=== PATIENT | male | born 1950 | race Caucasian/White ===

== ENCOUNTER → 2016-06-19 | Day surgery (SDC) | payer BC ==
[~2016-06-19] MED LIST: ACYCLOVIR400 MG PO; AMBIEN10 MG PO; AZOR; AZOR 10/40 MG T1 TAB PO; AZOR 5/20 MG TA1 TAB PO; GABAPENTIN300 MG PO; GABAPENTIN400 M2 PO; OXYCODONE HCL15 MG PO; PERCOCET 10/31 UDTA1 PO; PERCOCET 5-3251 TAB PO; PERCOCET 5/321 UDTAB PO; VOLTAREN75 MG PO; ZANAFLEX4 M1 PO; ZETIA PO; ZOCOR PO
--- NOTE | ~2016-06-19 | OR ---
Unit #: [id number] #: [id number] Patient: JULIO CESAR OROZCO "LONG" [id number] [address] [place], [place] [address] [id number] O MR#: [id number] NAME: JULIO CESAR OROZCO 'LONG' ROOM: Date of Procedure: 06/19/2016 Admission Date: 06/19/2016 Surgeon: Javy Keller M.D. : 1950 Attending Physician: Javy Keller M.D. Referring Physician: Javy Keller M.D. Primary Care Physician: Praveen Castro M.D. OPERATIVE REPORT PREOPERATIVE DIAGNOSES Degenerative disk disease, lumbar spinal stenosis, low back pain, radiculopathy. POSTOPERATIVE DIAGNOSES Degenerative disk disease, lumbar spinal stenosis, low back pain, radiculopathy. PROCEDURES PERFORMED Lumbar epidural steroid injection with intravenous sedation and fluoroscopic guidance for needle localization. HISTORY OF PRESENT ILLNESS The patient is a 66-year-old male with return of back and bilateral lower extremity pain, much more significant on the left than the right. He is treated medically with p.r.n. epidural steroid injections. If the pain does flare, epidurals have been the only modality to help settle it. Last injections were completed about 6 months ago. Based on patient's prior response, pathology, and symptomatology, we are going to proceed with a repeat epidural steroid injection today. DESCRIPTION OF PROCEDURE The patient was placed in a seated position. Standard monitors were applied. 4 mg of Versed were given for sedation and anxiolysis, which were adequate. Vital signs remained stable. Sterile prep and drape then of the lumbar area was performed. The skin then at the L4-5 level was localized with 1% lidocaine. An 18-gauge [employer] needle was then advanced via loss of resistance technique and fluoroscopic guidance in toward the epidural space. The patient did not complain of pain or paresthesia during needle advancement. After confirming proper positioning with fluoroscopy and radiographic contrast, 80 mg of Depo-Medrol and 4 mL of 0.125% bupivacaine were deposited. The patient tolerated the procedure otherwise well and was discharged to recovery room in stable condition. Dictated by... Javy Keller M.D. LHP/modl Unit #: [id number] #: [id number] Patient: JULIO CESAR OROZCO "LONG" TD: 06/20/2016 05:21 JOB #: [id number] OPERATIVE REPORT X Javy Keller MD X PROCEDURE OPERATIVE NOTE
== END | disposition home or self-care (01) ==
LOC: CCSC 09:49
DX: M51.16 Intervertebral disc disorders with radiculopathy, lumbar region (principal); M48.06 Spinal stenosis, lumbar region; M54.5 Low back pain
CPT/HCPCS: J1040; J2250

== ENCOUNTER → 2016-07-17 | Day surgery (SDC) | payer BC ==
--- NOTE | ~2016-07-17 | OR ---
Unit #: [id number] #: [id number] Patient: JULIO CESAR OROZCO "LONG" [id number] [address] [place], [place] [address] [id number] O MR#: [id number] NAME: JULIO CESAR OROZCO 'LONG' ROOM: Date of Procedure: 07/17/2016 Admission Date: 07/17/2016 Surgeon: Javy Keller M.D. : 1950 Attending Physician: Javy Keller M.D. Primary Care Physician: Praveen Castro M.D. OPERATIVE REPORT PREOPERATIVE DIAGNOSES 1. Back pain. 2. Radiculopathy. 3. Spinal stenosis. 4. Degenerative lumbar disk disease. POSTOPERATIVE DIAGNOSES 1. Back pain. 2. Radiculopathy. 3. Spinal stenosis. 4. Degenerative lumbar disk disease. PROCEDURE PERFORMED Lumbar epidural steroid injection with intravenous sedation and fluoroscopic guidance for needle localization. INDICATIONS FOR PROCEDURE The patient is a 66-year-old male, who had return of back and right much greater than left lower extremity pain due to known significant degenerative disk disease; facet disease; and spinal stenosis, most severe at the L4-L5 level. He has done well with medical management and p.r.n. epidural steroid injections. At times, single injections also required; other times, he required second or third. The patient had injection done just about 4 weeks ago, did not result in the usual good improvement he gets. We are going to proceed with a second injection based on history, pathology, symptomatology, and expected response. DESCRIPTION OF PROCEDURE The patient was placed in the seated position. Standard monitors were applied. 3 mg of Versed were given for sedation and anxiolysis, which were adequate. Vital signs remained stable. Sterile prep and drape then of the lumbar area was performed. The skin then at the L4 level was localized with 1% lidocaine. An 18-gauge [employer]ad needle was then advanced via loss of resistance technique and fluoroscopic guidance in toward the epidural space. The patient did not complain of pain or paresthesia during needle advancement. After confirming proper positioning with fluoroscopy and radiographic contrast, 80 mg of Depo-Medrol and 4 mL of 0.125% bupivacaine were deposited. The patient tolerated the procedure otherwise well and was discharged to the recovery room in stable condition. Dictated by... Unit #: [id number] #: [id number] Patient: JULIO CESAR OROZCO "LONG" Analisa Hernandez/valery TD: 07/17/2016 22:34 JOB #: [id number] OPERATIVE REPORT Page 1 of 1 X Javy Keller MD X PROCEDURE OPERATIVE NOTE
== END | disposition home or self-care (01) ==
LOC: CCSC 07:48
DX: M51.16 Intervertebral disc disorders with radiculopathy, lumbar region (principal); M48.06 Spinal stenosis, lumbar region
CPT/HCPCS: J1040; J2250

== ENCOUNTER → 2016-10-23 | Day surgery (SDC) | payer BC ==
--- NOTE | ~2016-10-23 | OR ---
Unit #: [id number] #: [id number] Patient: JULIO CESAR OROZCO [id number] [address] [place], [place] [address] [id number] O MR#: [id number] NAME: JULIO CESAR OROZCO ROOM: Date of Procedure: 10/23/2016 Admission Date: 10/23/2016 Surgeon: Javy Keller M.D. : 1950 Attending Physician: Javy Keller M.D. Primary Care Physician: Praveen Jernigan M.D. OPERATIVE REPORT JOB NOTE: CC: [facility] AND DR. PRAVEEN JERNIGAN PREOPERATIVE DIAGNOSES Back pain, radiculopathy, degenerative disk disease, lumbar spinal stenosis. POSTOPERATIVE DIAGNOSES Back pain, radiculopathy, degenerative disk disease, lumbar spinal stenosis. PROCEDURE PERFORMED Lumbar epidural steroid injection with intravenous sedation and fluoroscopic guidance for needle localization. INDICATIONS FOR PROCEDURE The patient is a 66-year-old male with return of back and right much greater than left lower extremity pain due to known severe spinal stenosis, degenerative disk and facet disease, most severe at the L4-L5 level. He is a poor surgical candidate. He is treated medically with p.r.n. epidural steroid injections. Last injection was completed little over 3 months ago. The patient had about a 60% to 75% reduction in his symptom complex. Pain now returns in typical distribution. In the past, he always done well with a single injection. Last time, he required 2 injections a month apart. We will repeat injection today and then see his response that determine whether or not he needs the second injection. Plan is to do few injections as required. DESCRIPTION OF PROCEDURE The patient was placed in a seated position. Standard monitors were applied. 4 mg of Versed were given for sedation and anxiolysis, which were adequate. Vital signs remained stable. Sterile prep and drape then of the lumbar area was performed. The skin then at the L4 level was localized with 1% lidocaine. An 18-gauge Ne[employer] needle was then advanced via loss of resistance technique and fluoroscopic guidance in toward the epidural space. After confirming proper positioning with fluoroscopy and radiographic contrast, 80 mg of Depo-Medrol and 4 mL of 0.125% bupivacaine were deposited. The patient tolerated the procedure otherwise well and was discharged to the recovery room in stable condition. Dictated by... Javy Keller M.D. Unit #: [id number] #: [id number] Patient: JULIO CESAR OROZCO LHP/valery TD: 10/23/2016 11:49 JOB #: [id number] OPERATIVE REPORT Page 1 of 1 X Javy Keller MD X PROCEDURE OPERATIVE NOTE
== END | disposition home or self-care (01) ==
LOC: CCSC 07:02
DX: M51.16 Intervertebral disc disorders with radiculopathy, lumbar region (principal); M48.06 Spinal stenosis, lumbar region
CPT/HCPCS: J1040; J2250

== ENCOUNTER → 2016-11-06 | Day surgery (SDC) | payer BC ==
--- NOTE | ~2016-11-06 | OR ---
Unit #: [id number] #: [id number] Patient: JULIO CESAR OROZCO [id number] [address] [address] [id number] O MR#: [id number] NAME: JULIO CESAR OROZCO ROOM: Date of Procedure: 11/06/2016 Admission Date: 11/06/2016 Surgeon: Javy Keller M.D. : 1950 Attending Physician: Javy Keller M.D. Primary Care Physician: Praveen Castro M.D. OPERATIVE REPORT PREOPERATIVE DIAGNOSES Degenerative disk disease, spinal stenosis, low back pain, radiculopathy. POSTOPERATIVE DIAGNOSES Degenerative disk disease, spinal stenosis, low back pain, radiculopathy. PROCEDURE PERFORMED Lumbar epidural steroid injection with intravenous sedation and fluoroscopic guidance for needle localization. INDICATIONS FOR PROCEDURE The patient is a 66-year-old male with worsening back and bilateral lower extremity pains due to previously mentioned nonsurgical pathology. He has done fairly well with p.r.n. epidural steroid injections to settle this down. The last set did not work quite as well as the previous had where he had gotten multiple months of improvement, but has a repeat injection today. If he does not better or longer-term improvement, we may look towards repeating an MRI to see if perhaps his pathology has changed. DESCRIPTION OF PROCEDURE The patient was placed in a seated position. Standard monitors were applied. 4 mg of Versed were given for sedation and anxiolysis, which were adequate. Vital signs remained stable. Sterile prep and drape then of the lumbar area was performed. The skin then at the L4-L5 level was localized with 1% lidocaine. An 18-gauge [employer]ad needle was then advanced via loss of resistance technique and fluoroscopic guidance in toward the epidural space. After confirming proper positioning with fluoroscopy and radiographic contrast, 80 mg of Depo-Medrol and 4 mL of 0.125% bupivacaine were deposited. The patient tolerated the procedure otherwise well and was discharged to the recovery room in stable condition. Dictated by... Analisa Hernandez/valery TD: 11/06/2016 11:15 JOB #: [id number] Unit #: [id number] #: [id number] Patient: JULIO CESAR OROCZO OPERATIVE REPORT Page 1 of 1 X Javy Keller MD X PROCEDURE OPERATIVE NOTE
== END | disposition home or self-care (01) ==
LOC: CCSC 09:21
DX: M51.16 Intervertebral disc disorders with radiculopathy, lumbar region (principal); M48.06 Spinal stenosis, lumbar region; Z79.891 Long term (current) use of opiate analgesic; Z79.899 Other long term (current) drug therapy
CPT/HCPCS: J1040; J2250

== ENCOUNTER → 2016-11-27 | Day surgery (SDC) | payer BC ==
--- NOTE | ~2016-11-27 | OR ---
Unit #: [id number] #: [id number] Patient: JULIO CESAR OROZCO [id number] [address] [address] [id number] O MR#: [id number] NAME: JULIO CESAR OROZCO ROOM: Date of Procedure: 11/27/2016 Admission Date: 11/27/2016 Surgeon: Javy Keller M.D. : 1950 Attending Physician: Javy Keller M.D. Primary Care Physician: Praveen Castro M.D. OPERATIVE REPORT PREOPERATIVE DIAGNOSES Back pain, radiculopathy, spinal stenosis, degenerative disk disease, radiculopathy. POSTOPERATIVE DIAGNOSES Back pain, radiculopathy, spinal stenosis, degenerative disk disease, radiculopathy. PROCEDURE PERFORMED Lumbar epidural steroid injection with intravenous sedation and fluoroscopic guidance for needle localization. INDICATIONS FOR PROCEDURE The patient is a 66-year-old male with previously mentioned diagnosis. He is treated medically with p.r.n. epidural steroid injections when his symptoms flare. The two injections done over the last month or so that have given him added improvement. He is not yet down to his baseline, so we are going to proceed with what should be a final injection at this point. DESCRIPTION OF PROCEDURE The patient was placed in the seated position. Standard monitors were applied. 4 mg of Versed were given for sedation and anxiolysis, which were adequate. Vital signs remained stable. Sterile prep and drape then of the lumbar area was performed. The skin then at the L4-L5 level was localized with 1% lidocaine. An 18-gauge [employer] needle was then advanced via loss of resistance technique and fluoroscopic guidance in toward the epidural space. After confirming proper positioning with fluoroscopy and radiographic contrast, 80 mg of Depo-Medrol and 4 mL of 0.125% bupivacaine were deposited. The patient tolerated the procedure otherwise well and was discharged to the recovery room in stable condition. Dictated by... Analisa Hernandez/felisal TD: 11/27/2016 12:27 JOB #: [id number] CC: [facility] Unit #: [id number] #: [id number] Patient: JULIO CESAR OROZCO OPERATIVE REPORT Page 1 of 1 X Javy Keller MD X PROCEDURE OPERATIVE NOTE
== END | disposition home or self-care (01) ==
LOC: CCSC 09:33
DX: M51.16 Intervertebral disc disorders with radiculopathy, lumbar region (principal); M48.02 Spinal stenosis, cervical region; E66.01 Morbid (severe) obesity due to excess calories; Z79.899 Other long term (current) drug therapy
CPT/HCPCS: J1040; J2250